=== PATIENT | male | born 1945 | race Caucasian/White ===

== ENCOUNTER 2018-01-26 11:49 | Emergency (ER) | payer MEDICARE ==
[~2018-01-26] VITALS: Ht 185.4 cm; Wt 77.1 kg
[~2018-01-26 11:49] MED LIST: ALBU90I INH; AZIT250 PO; BENAML10/5; Benazepril HCl10 MG; CIPR500 PO; LEVSOD100; LEVSOD75; METO50ER; NAPR500 PO; NAPR500ERA; OMEPRAZOLE DR 40 MG; PIOG15; SIMV10
[2018-01-26] MEDS ORDERED: AMLO10 PO (11:56)
== END 2018-01-26 12:52 | disposition home or self-care (01) ==
LOC: ER 11:49
DX: S61.011A Laceration without foreign body of right thumb without damage to nail, initial encounter (principal); I10 Essential (primary) hypertension; Z88.0 Allergy status to penicillin; Z79.899 Other long term (current) drug therapy; Z87.891 Personal history of nicotine dependence; W26.0XXA Contact with knife, initial encounter
CPT/HCPCS: 12001; 99283

== ENCOUNTER 2021-01-16 14:29 | Observation (INO) | payer MEDICARE ==
[~2021-01-16] VITALS: Ht 182.9 cm; Wt 73.6 kg
[~2021-01-16 14:29] MED LIST changes: +AMLO10 PO; -Benazepril HCl10 MG; +Benazepril HCl10 MG PO; -SIMV10; +SIMV10 PO
[2021-01-16 15:28] LABS: BASOPHILS ABSOLUTE AUTO 0.05 K/mm3 (0.00-0.23); BASOPHILS PERCENT AUTO 1 % (0-2); EOSINOPHILS ABSOLUTE AUTO 0.21 K/mm3 (0.00-0.68); EOSINOPHILS PERCENT AUTO 4 % (0-6); Hematocrit 46.3 % (37.0-53.0); IMMATURE GRAN ABSOLUTE AUTO 0.01 K/mm3 (0.00-0.10); IMMATURE GRAN PERCENT AUTO 0 % (0-1); LYMPHOCYTES ABSOLUTE AUTO 0.99 K/mm3 (0.84-5.20); LYMPHOCYTES PERCENT AUTO 17 % (21-46); MONOCYTES ABSOLUTE AUTO 0.52 K/mm3 (0.16-1.47); MONOCYTES PERCENT AUTO 9 % (4-13); Mean Corpuscular HGB 31.6 pg (26.0-34.0); Mean Corpuscular HGB Conc 34.6 g/dL (31.5-36.5); Mean Corpuscular Volume 91 fL (80-100); Mean Platelet Volume 9.7 fL (9.1-12.4); NEUTROPHILS ABSOLUTE AUTO 3.96 K/mm3 (1.96-9.15); NEUTROPHILS PERCENT AUTO 69 % (41-73); Platelet Count 257 K/mm3 (150-400); RDW Coefficient Variation 13.4 % (11.7-14.2); Red Blood Cell Count 5.07 M/mm3 (4.30-5.90); White Blood Cell Count 5.74 K/mm3 (4.00-11.30)
[2021-01-16 15:44] LABS: Alanine Aminotransfer (ALT/SGP 21 U/L (12-78); Albumin, Blood 3.6 g/dL (3.4-5.0); Albumin/Globulin Ratio 0.9 (0.8-1.8); Alk Phos 126 U/L (50-136); Anion Gap 4 mmol/L (6-16); Aspartate Aminotrans (AST/SGOT 15 U/L (12-37); Bilirubin, Total 0.7 mg/dL (0.1-1.0); Blood Urea Nitrogen 14 mg/dL (8-24); Bun/Creatinine Ratio 16.4 (12.0-20.0); CO2, Blood 28 mmol/L (21-32); Calcium, Blood 8.7 mg/dL (8.5-10.1); Chloride, Blood 108 mmol/L (98-108); Creatinine, Blood 0.86 mg/dL (0.60-1.20); Globulin, Blood 4.1 g/dL (2.2-4.0); Glomerular Filtration Rate >60 (60-); Glucose, Blood 137 mg/dL (70-99); Potassium, Blood 3.9 mmol/L (3.5-5.5); Sodium, Blood 140 mmol/L (136-145); Total Protein, Blood 7.7 g/dL (6.4-8.2); Troponin I <0.015 ng/mL (0.000-0.040)
[2021-01-16] MEDS ORDERED: EUTHYROX88 MC1 PO (16:09)
[2021-01-16] MEDS ORDERED: Aspirin EC81 MG PO (16:11)
[2021-01-16 17:26] LABS: Source, Urine Clean Catch
[2021-01-16 17:29] LABS: Appearance, Urine Clear (Clear); Bilirubin, Urine Neg (Neg); Blood, Urine Neg (Neg); Color, Urine Yellow (P-Yellow); Glucose Qualitative, Urine Neg (Neg); Ketones, Urine Neg (Neg); Leukocyte Esterase, Urine Neg (Neg); Nitrite, Urine Neg (Neg); Protein, Urine 1+ (Neg); Specific Gravity, Urine 1.025 (1.003-1.022); Urobilinogen, Urine NORM (Normal)
[2021-01-16] MEDS ORDERED: OMEP20ER PO (18:22)
[2021-01-16] MEDS ORDERED: ALBU90OI INH (18:23)
[2021-01-16] MEDS ORDERED: METO25ER PO (20:06)
--- NOTE | 2021-01-16 23:24 | NUR ---
RECEIVED CALL FROM TELEMETRY REPORTING PT. HAD 5.2 SEC PAUSE. PT. HAD BEEN UP TO BATHROOM W/ASSIST DURING THIS TIME. NOTIFIED CATHERINE MCDONALD, ORDER FOR BEDREST. PT. RESTING QUIETLY IN BED, NO APPARENT DISTRESS NOTED. WILL CONT TO MONITOR.
[2021-01-17 05:01] LABS: Hemoglobin 15.3 g/dL (13.5-17.5); Mean Corpuscular HGB 31.5 pg (26.0-34.0); Mean Corpuscular HGB Conc 34.8 g/dL (31.5-36.5); Mean Corpuscular Volume 91 fL (80-100); Mean Platelet Volume 9.8 fL (9.1-12.4); Platelet Count 212 K/mm3 (150-400); RDW Coefficient Variation 13.2 % (11.7-14.2); RDW Standard Deviation 43.6 fL (35.1-46.3); Red Blood Cell Count 4.85 M/mm3 (4.30-5.90); White Blood Cell Count 5.69 K/mm3 (4.00-11.30)
[2021-01-17 05:25] LABS: Anion Gap 7 mmol/L (6-16); Blood Urea Nitrogen 10 mg/dL (8-24); Bun/Creatinine Ratio 14.5 (12.0-20.0); CO2, Blood 26 mmol/L (21-32); Calcium, Blood 8.1 mg/dL (8.5-10.1); Chloride, Blood 104 mmol/L (98-108); Creatinine, Blood 0.69 mg/dL (0.60-1.20); Glomerular Filtration Rate >60 (60-); Glucose, Blood 122 mg/dL (70-99); Magnesium, Blood 2.1 mg/dL (1.6-2.4); Potassium, Blood 3.6 mmol/L (3.5-5.5); Sodium, Blood 137 mmol/L (136-145)
--- NOTE | 2021-01-17 05:52 | NUR ---
SHIFT SUMMARY- PT. NEW ADMIT FROM ED WITH VERTIGO. A&OX4, [place]. PT. VERY DIZZY WHEN STANDS AND AMBULATES. PLACED ON BEDREST WITH URIANL @BEDSIDE. NO COMPLAINTS OF PAIN OR DISCOMFORT T/O THE NIGHT. PT. RESTED QUIETLY IN BED, NO APPARENT DISTRESS NOTED. WILL CONT TO MONITOR.
[2021-01-17 11:09] LABS: Lactate Dehydrogenase (Ld),Bld 187 U/L (100-240); Prostate Specific Antigen 0.333 ng/mL (0.000-4.000)
[2021-01-17 11:11] LABS: Cancer Antigen 19-9 13.5 U/mL (2.0-37.0); Carcinoembryonic Antigen 121.4 ng/mL (0.0-3.0)
--- NOTE | 2021-01-17 18:26 | NUR ---
SHIFT SUMMARY PT AXO, PLEASANT AND COOPERATIVE WITH CARE THOUGH [facility]. PHYSICAL THERAPY ASSESSED PATIENT, SEE NOTE. EMESIS EPISODE DIRECTLY FOLLOWING PHYSICAL THERAPY EXERCISE. VSS. PT DENIES PAIN AND SOB. MEDICATED FOR NAUSEA PER EMAR. PATIENT, SPOUSE, SON AND DAUGHTER EDUCATED ABOUT VISITOR RESTRICTIONS THOUGH ALL PRESENT IN THE ROOM AT THIS TIME WITH DR. JOHNSON. NO ACUTE CHANGES THIS SHIFT
--- NOTE | 2021-01-18 03:46 | NUR ---
SHIFT SUMMARY A/OX4, PT REPORTS MILD NAUSEA WITH NO EMESIS THIS SHIFT. UNSTEADY GAIT NOTED, UP TO BATHROOM WITH FWW AND GB. AT BEDSIDE T/O NIGHT. VSS, NO ACUTE CHANGES AT THIS TIME. BED IN LOWEST POSITION WITH CALL LIGHT IN REACH. WILL CONTINUE TO MONITOR AND REPORT TO ONCOMING RN.
[2021-01-18 05:16] LABS: Hematocrit 48.2 % (37.0-53.0); Hemoglobin 16.7 g/dL (13.5-17.5); Mean Corpuscular HGB 31.7 pg (26.0-34.0); Mean Corpuscular HGB Conc 34.6 g/dL (31.5-36.5); Mean Corpuscular Volume 92 fL (80-100); Mean Platelet Volume 9.8 fL (9.1-12.4); Platelet Count 229 K/mm3 (150-400); RDW Coefficient Variation 13.5 % (11.7-14.2); RDW Standard Deviation 45.2 fL (35.1-46.3); Red Blood Cell Count 5.26 M/mm3 (4.30-5.90); White Blood Cell Count 4.16 K/mm3 (4.00-11.30)
[2021-01-18 05:37] LABS: Albumin, Blood 3.2 g/dL (3.4-5.0); Anion Gap 5 mmol/L (6-16); Blood Urea Nitrogen 14 mg/dL (8-24); Bun/Creatinine Ratio 16.8 (12.0-20.0); CO2, Blood 26 mmol/L (21-32); Calcium, Blood 8.8 mg/dL (8.5-10.1); Chloride, Blood 105 mmol/L (98-108); Creatinine, Blood 0.83 mg/dL (0.60-1.20); Glomerular Filtration Rate >60 (60-); Glucose, Blood 151 mg/dL (70-99); Potassium, Blood 4.4 mmol/L (3.5-5.5); Sodium, Blood 136 mmol/L (136-145)
--- NOTE | 2021-01-18 05:49 | NUR ---
PROVIDER CONSULT ATTEMPTED TO CALL IN RADIOLOGY ONCOLOGIST CONSULT, NO ANSWERING SERVICE SET UP FOR DR. SEE/DR. HAWKINS. WILL FORWARD INFORMATION TO DAX FERNANDEZ.
[2021-01-18] MEDS ORDERED: DEXA4 PO (12:52)
[2021-01-18] MEDS ORDERED: ONDA4ODT MM (12:53)
--- NOTE | 2021-01-18 15:09 | NUR ---
PATIENT DISCHARGE: PATIENT DISCHARGED TO HOME THIS SHIFT. MEDICATION RECONCILIATION COMPLETED; MED LIST FAXED TO [facility]. DISCHARGE EDUCATION COMPLETED WITH PATIENT AND FAMILY. PATIENT TRANSPORTED TO EXIT BY [facility] STAFF WITH WHEELCHAIR AT 1445. PATIENT DEPARTED [facility] VIA PRIVATE AUTO.
--- NOTE | 2021-01-18 16:28 | NUR ---
Met with pt today, along with and their daughter, who speaks primarily for the group. Bisi saw pt yesterday; pt states they do not have any needs from us at this time. Will remain available.
== END 2021-01-18 14:53 | disposition home or self-care (01) ==
LOC: ER 14:29 → MEDS 14:30 → ER 18:18 → MEDS 19:45 → ENPENDDIS 01-18 12:03 → MEDS 01-18 14:53
PROVIDERS: Internal Medicine Hematology & Oncology; Physician Assistant; ADMIT Internal Medicine
DX: H81.10 Benign paroxysmal vertigo, unspecified ear (principal); C79.31 Secondary malignant neoplasm of brain; C79.51 Secondary malignant neoplasm of bone; C78.00 Secondary malignant neoplasm of unspecified lung; C77.1 Secondary and unspecified malignant neoplasm of intrathoracic lymph nodes; C77.3 Secondary and unspecified malignant neoplasm of axilla and upper limb lymph nodes; C80.1 Malignant (primary) neoplasm, unspecified; R11.2 Nausea with vomiting, unspecified; M79.605 Pain in left leg; M79.604 Pain in right leg; I35.0 Nonrheumatic aortic (valve) stenosis; J44.9 Chronic obstructive pulmonary disease, unspecified; I10 Essential (primary) hypertension; E78.5 Hyperlipidemia, unspecified; K21.9 Gastro-esophageal reflux disease without esophagitis; H91.90 Unspecified hearing loss, unspecified ear; E03.9 Hypothyroidism, unspecified; R97.0 Elevated carcinoembryonic antigen [CEA]; I45.2 Bifascicular block; R59.1 Generalized enlarged lymph nodes; R91.8 Other nonspecific abnormal finding of lung field; E11.9 Type 2 diabetes mellitus without complications; Z88.0 Allergy status to penicillin; Z87.891 Personal history of nicotine dependence; Z86.73 Personal history of transient ischemic attack (TIA), and cerebral infarction without residual deficits
CPT/HCPCS: 36415; 70450; 71046; 71260; 74177; 80048; 80053; 80069; 82378; 83615; 83735; 83880; 84153; 84484; 85025; 85027; 86301; 93005; 93010; 94640; 94664; 94760; 96361; 96374; 96375; 96376; 97110; 97112; 97162; 99285-25; A9270; G0378; J2405; Q9967

== ENCOUNTER 2021-01-29 09:01 | Day surgery (SDC) | payer MEDICARE ==
[~2021-01-29 09:01] MED LIST changes: +ALBU90OI INH; +Aspirin EC81 MG PO; +DEXA4 PO; +EUTHYROX88 MC1 PO; +METO25ER PO; +OMEP20ER PO; +ONDA4ODT MM
== END 2021-01-29 23:51 | disposition home or self-care (01) ==
LOC: MOI US 09:01
DX: C77.3 Secondary and unspecified malignant neoplasm of axilla and upper limb lymph nodes (principal); C34.81 Malignant neoplasm of overlapping sites of right bronchus and lung; C79.31 Secondary malignant neoplasm of brain
CPT/HCPCS: 38505; 76942; 88305; 88341; 88342

== ENCOUNTER 2021-04-04 10:21 | Inpatient (IN) | payer MEDICARE ==
[~2021-04-04] VITALS: Ht 180.3 cm; Wt 68.0 kg
[2021-04-04 10:56] LABS: BASOPHILS ABSOLUTE AUTO 0.02 K/mm3 (0.00-0.23); BASOPHILS PERCENT AUTO 1 % (0-2); Hematocrit 29.6 % (37.0-53.0); Hemoglobin 10.3 g/dL (13.5-17.5); LYMPHOCYTES ABSOLUTE AUTO 0.27 K/mm3 (0.84-5.20); LYMPHOCYTES PERCENT AUTO 10 % (21-46); MONOCYTES ABSOLUTE AUTO 0.11 K/mm3 (0.16-1.47); MONOCYTES PERCENT AUTO 4 % (4-13); Mean Corpuscular HGB 34.7 pg (26.0-34.0); Mean Corpuscular HGB Conc 34.8 g/dL (31.5-36.5); Mean Corpuscular Volume 100 fL (80-100); Mean Platelet Volume 9.7 fL (9.1-12.4); Platelet Count 152 K/mm3 (150-400); RDW Coefficient Variation 20.3 % (11.7-14.2); RDW Standard Deviation 72.5 fL (35.1-46.3); Red Blood Cell Count 2.97 M/mm3 (4.30-5.90); White Blood Cell Count 2.78 K/mm3 (4.00-11.30)
[2021-04-04 11:05] LABS: EOSINOPHILS PERCENT AUTO 0 % (0-6); IMMATURE GRAN ABSOLUTE AUTO 1.15 K/mm3 (0.00-0.10); IMMATURE GRAN PERCENT AUTO 41 % (0-1); NEUTROPHILS ABSOLUTE AUTO 1.23 K/mm3 (1.96-9.15); NEUTROPHILS PERCENT AUTO 44 % (41-73)
[2021-04-04 11:14] LABS: Alanine Aminotransfer (ALT/SGP 74 U/L (12-78); Albumin, Blood 2.8 g/dL (3.4-5.0); Alk Phos 136 U/L (50-136); Anion Gap 15 mmol/L (6-16); Aspartate Aminotrans (AST/SGOT 40 U/L (12-37); Bilirubin, Total 1.6 mg/dL (0.1-1.0); Blood Urea Nitrogen 21 mg/dL (8-24); Bun/Creatinine Ratio 35.1 (12.0-20.0); CO2, Blood 21 mmol/L (21-32); Calcium, Blood 7.3 mg/dL (8.5-10.1); Chloride, Blood 95 mmol/L (98-108); Globulin, Blood 2.9 g/dL (2.2-4.0); Glomerular Filtration Rate >60 (60-); Glucose, Blood 178 mg/dL (70-99); Potassium, Blood 4.2 mmol/L (3.5-5.5); Sodium, Blood 131 mmol/L (136-145); Total Protein, Blood 5.7 g/dL (6.4-8.2)
[2021-04-04 11:53] LABS: SARS-Cov-2 (COVID-19) PCR, MMC NEGATIVE (NEGATIVE)
--- NOTE | 2021-04-04 15:20 | NUR ---
SBAR REPORT FROM FLAKITA PANG RN
[2021-04-04] MEDS ORDERED: DEXA2 PO (17:19)
[2021-04-04] MEDS ORDERED: Aspir 8181 MG PO (17:20)
[2021-04-04] MEDS ORDERED: Zocor10 MG PO (17:20)
--- NOTE | 2021-04-04 18:19 | NUR ---
Patient was not patiently waiting for me to help him stand family said "goodluck trying to get him to wait." I said BSC was the only choice for urinationing at that time. He was peeing on BSC on the floor, not being careful. Family was reluctant to let me help. Instead of letting me help. Vistior/ family was in room.
[2021-04-05 04:47] LABS: BASOPHILS ABSOLUTE AUTO 0.02 K/mm3 (0.00-0.23); BASOPHILS PERCENT AUTO 2 % (0-2); Hematocrit 24.6 % (37.0-53.0); Hemoglobin 8.1 g/dL (13.5-17.5); LYMPHOCYTES ABSOLUTE AUTO 0.13 K/mm3 (0.84-5.20); LYMPHOCYTES PERCENT AUTO 10 % (21-46); MONOCYTES ABSOLUTE AUTO 0.09 K/mm3 (0.16-1.47); MONOCYTES PERCENT AUTO 7 % (4-13); Mean Corpuscular HGB 34.2 pg (26.0-34.0); Mean Corpuscular HGB Conc 32.9 g/dL (31.5-36.5); Mean Corpuscular Volume 104 fL (80-100); Mean Platelet Volume 9.8 fL (9.1-12.4); Platelet Count 97 K/mm3 (150-400); RDW Coefficient Variation 20.9 % (11.7-14.2); RDW Standard Deviation 77.3 fL (35.1-46.3); Red Blood Cell Count 2.37 M/mm3 (4.30-5.90); White Blood Cell Count 1.36 K/mm3 (4.00-11.30)
[2021-04-05 04:50] LABS: EOSINOPHILS PERCENT AUTO 0 % (0-6); IMMATURE GRAN ABSOLUTE AUTO 0.01 K/mm3 (0.00-0.10); IMMATURE GRAN PERCENT AUTO 1 % (0-1); NEUTROPHILS ABSOLUTE AUTO 1.11 K/mm3 (1.96-9.15); NEUTROPHILS PERCENT AUTO 82 % (41-73)
--- NOTE | 2021-04-05 05:02 | NUR ---
SCHOOL BUS MONITOR SUMMARY PT AAOX3 AND PLEASANT. CALLS APPROPRIATELY FOR ASSIST. UP FREQUENTLY THROUGHOUT THE NIGHT TO THE BEDSIDE TO USE URINAL. LACTIC FROM 9 TO 6.2 AT START OF SHIFT. RECIEVED ORDER FROM DR JONES FOR ADDITIONAL LITER OF NS TO RUN AT 125 ML/HR AND TO RECHECK LACTIC WITH AM LABS WHICH ARE STILL PENDING. SATTING 99% ON 5L O2, TITRATED DOWN TO 3L. VSS, WILL CONTINUE TO MONITOR.
[2021-04-05 05:05] LABS: Alanine Aminotransfer (ALT/SGP 62 U/L (12-78); Albumin, Blood 2.4 g/dL (3.4-5.0); Albumin/Globulin Ratio 0.8 (0.8-1.8); Alk Phos 106 U/L (50-136); Anion Gap 7 mmol/L (6-16); Aspartate Aminotrans (AST/SGOT 19 U/L (12-37); Bilirubin, Total 1.1 mg/dL (0.1-1.0); Blood Urea Nitrogen 11 mg/dL (8-24); Bun/Creatinine Ratio 23.5 (12.0-20.0); CO2, Blood 24 mmol/L (21-32); Calcium, Blood 7.3 mg/dL (8.5-10.1); Chloride, Blood 106 mmol/L (98-108); Creatinine, Blood 0.47 mg/dL (0.60-1.20); Globulin, Blood 2.9 g/dL (2.2-4.0); Glomerular Filtration Rate >60 (60-); Glucose, Blood 133 mg/dL (70-99); Magnesium, Blood 2.1 mg/dL (1.6-2.4); Potassium, Blood 4.2 mmol/L (3.5-5.5); Sodium, Blood 137 mmol/L (136-145); Total Protein, Blood 5.3 g/dL (6.4-8.2)
--- NOTE | 2021-04-05 17:42 | NUR ---
SHIFT SUMMARY PATIENT ALERT AND ORIENTATED 3-4X. PLEASANT AND COOPERATIVE WITH CARE. PATIENT USES URINAL WITH ONE PERSON ASSIST. PATIENT HAS BEEN ON 3L OF OXYGEN THROUGHOUT SHIFT. NO COMPLAINTS OF NAUSEA, VOMITTING, OR PAIN DURING SHIFT. BED ALARM SET AND IN LOWEST POSITION. CALL LIGHT IN REACH. VITAL SIGNS REVIEWED. WILL CONTINUE TO MONITOR.
--- NOTE | 2021-04-06 04:03 | NUR ---
SHIFT SUMMARY A/OX3, USES CALL LIGHT APPROPRIATELY. SLEPT T/O THE NIGHT. CURRENTLY ON 3L VIA NC WITH SATS GREATER THAN 92. VSS, NO ACUTE CHANGES AT THIS TIME. BED IN LOWEST POSITION WITH CALL LIGHT IN REACH. WILL CONTINUE TO MONITOR AND REPORT TO ONCOMING RN.
--- NOTE | 2021-04-06 04:25 | NUR ---
PHYSICIAN CONTACT TACHYCARDIC IN THE 140-150S THIS AM. [employer] MANAGER ARCHITECT PROVIDER NOTIFIED, NEW ORDER FOR TELE AND 25MG PO METOPROL TARTRATE X1. WILL CONTINUE TO MONITOR
[2021-04-06 07:18] LABS: Hematocrit 22.8 % (37.0-53.0); Hemoglobin 7.9 g/dL (13.5-17.5); Mean Corpuscular HGB 35.1 pg (26.0-34.0); Mean Corpuscular HGB Conc 34.6 g/dL (31.5-36.5); Mean Corpuscular Volume 101 fL (80-100); Mean Platelet Volume 10.2 fL (9.1-12.4); Platelet Count 96 K/mm3 (150-400); RDW Coefficient Variation 20.4 % (11.7-14.2); RDW Standard Deviation 73.9 fL (35.1-46.3); Red Blood Cell Count 2.25 M/mm3 (4.30-5.90); White Blood Cell Count 1.43 K/mm3 (4.00-11.30)
[2021-04-06 07:31] LABS: Alanine Aminotransfer (ALT/SGP 71 U/L (12-78); Albumin, Blood 2.5 g/dL (3.4-5.0); Albumin/Globulin Ratio 0.8 (0.8-1.8); Alk Phos 99 U/L (50-136); Anion Gap 9 mmol/L (6-16); Aspartate Aminotrans (AST/SGOT 23 U/L (12-37); Bilirubin, Total 1.4 mg/dL (0.1-1.0); Blood Urea Nitrogen 16 mg/dL (8-24); Bun/Creatinine Ratio 29.7 (12.0-20.0); CO2, Blood 24 mmol/L (21-32); Calcium, Blood 7.9 mg/dL (8.5-10.1); Chloride, Blood 101 mmol/L (98-108); Creatinine, Blood 0.54 mg/dL (0.60-1.20); Globulin, Blood 3.2 g/dL (2.2-4.0); Glomerular Filtration Rate >60 (60-); Glucose, Blood 162 mg/dL (70-99); Potassium, Blood 4.2 mmol/L (3.5-5.5); Sodium, Blood 134 mmol/L (136-145); Total Protein, Blood 5.7 g/dL (6.4-8.2); Vancomycin, Trough 8.8 ug/mL (5.0-10.0)
--- NOTE | 2021-04-06 13:32 | NUR ---
TRANSFER NOTE PATIENTS HEART RATE AT 0430 WAS IN 140S AND STAYED IN THAT RANGE UNTIL SHIFT CHANGE. CALLED DR RADFORD TO NOTIFY, MEDICATION PRESCRIBED AND GIVEN. CALLED DR RADFORD AGAIN AFTER WAITING FOR MEDICATION TO TAKE EFFECT. HEART RATE STILL IN 140S. DR RADFORD PRESCRIBED DIGOXIN TO NO EFFECT. PATIENT TRANSFERRED TO PCU. REPORT GIVEN TO MULE RIDER.
--- NOTE | 2021-04-06 18:07 | NUR ---
SHIFT SUMMARY PT TRANSFERED TO PCU AT APPROX 1330, HR 150'S BP 88/54; NOTIFIED DR RADFORD, NEW ORDERS FOR NS 500cc BOLUS, HOLD THE CARDIZEM PUSH AND START CARDIZEM GTT AT 5ML/HR. TITRATED TO 20ML/HR WITH NO CHANGE TO HR, NOTIFIED DR RADFORD, NEW ORDERS FOR AMIO BOLUS AND GTT. PT ORIENTED TO ROOM AND CALL LIGHT. A&O; CALM AND COOPERATIVE WITH CARE. WALES. PT DENIES PAIN, CHEST PAIN, SOB, NASUEA AND DIZZINESS. SPO2 >92%, ON 3L O2 VIA NC AT 100% WHEN TRANSFERED, TITRATED TO 1L O2 VIA NC SP02 91-96%. PT RECEIVING IV ANTIBIOTICS. BP TRENDED UP AFTER BOLUS, HR 130'S TO 140'S, OTHER VSS. NO OTHER ACUTE CHANGES NOTED DURING SHIFT. WILL CONTINUE TO MONITOR UNTIL REPORT GIVEN TO ONCOMING RN.
[2021-04-07 04:20] LABS: Hematocrit 21.6 % (37.0-53.0); Hemoglobin 7.5 g/dL (13.5-17.5); Mean Corpuscular HGB 35.2 pg (26.0-34.0); Mean Corpuscular HGB Conc 34.7 g/dL (31.5-36.5); Mean Corpuscular Volume 101 fL (80-100); Mean Platelet Volume 10.6 fL (9.1-12.4); Platelet Count 80 K/mm3 (150-400); RDW Coefficient Variation 19.9 % (11.7-14.2); RDW Standard Deviation 72.9 fL (35.1-46.3); Red Blood Cell Count 2.13 M/mm3 (4.30-5.90)
--- NOTE | 2021-04-07 04:32 | NUR ---
SUMMARY PT REMAINS IN A-FLUTTER IN 130'S. PT DENIES CX PAIN OR SOB. PT HAS BEEN RESTING WELL T/O SHIFT. PT IS VOIDING AND TAKING IN PO FLUIDS. PT CURRENTLY SLEEPING IN NO DISTRESS. CALL LIGHT IN REACH.
[2021-04-07 04:52] LABS: Alanine Aminotransfer (ALT/SGP 85 U/L (12-78); Albumin, Blood 2.4 g/dL (3.4-5.0); Albumin/Globulin Ratio 0.8 (0.8-1.8); Alk Phos 87 U/L (50-136); Anion Gap 8 mmol/L (6-16); Aspartate Aminotrans (AST/SGOT 30 U/L (12-37); Bilirubin, Total 1.3 mg/dL (0.1-1.0); Blood Urea Nitrogen 20 mg/dL (8-24); Bun/Creatinine Ratio 38.3 (12.0-20.0); CO2, Blood 23 mmol/L (21-32); Calcium, Blood 7.2 mg/dL (8.5-10.1); Chloride, Blood 101 mmol/L (98-108); Creatinine, Blood 0.52 mg/dL (0.60-1.20); Globulin, Blood 3.1 g/dL (2.2-4.0); Glomerular Filtration Rate >60 (60-); Glucose, Blood 181 mg/dL (70-99); Magnesium, Blood 2.1 mg/dL (1.6-2.4); Potassium, Blood 4.1 mmol/L (3.5-5.5); Sodium, Blood 132 mmol/L (136-145); Total Protein, Blood 5.5 g/dL (6.4-8.2)
--- NOTE | 2021-04-07 18:02 | NUR ---
PT HAS BEEN RESTING WELL IN BED T/O THE DAY DENIES SOB AND CP. PT DOES REPORT SOME NAUSEA THIS AM STS THAT BEGAN AFTER LUNCH WHEN HE WAS TOLLED FOR A BED BATH. AMIODERONE CONTINUES INFUSING AT 16.7ML/HR, PT HAS ALSO RECIEVED LOPRESSOR AND DIGOXIN FOR RATE CONTROL, BUT RATE OR RHYTHM HAS REMAINED UNCHAGED IN THE MID 140s. OTHERWISE NO ACUTE CHANGES THIS SHIFT
--- NOTE | 2021-04-07 22:36 | NUR ---
DR. MONROE UPDATED ON PATIENT HR, WHICH IS SUSTAINING 140'S 30 MIN POST IV METOPROL PUSH. WENT INTO 120'S FOR 10 MIN AT THE MOST THEN BACK UP. REMAINS ON AMIO DRIP AT 16.7ML/HR. ASYMPTOMATIC RESTING IN BED. CLARIFIED PARAMETERS OF METOPROL PUSH ORDER FOR HR GREATER THAN 120 BUT NO OTHER NEW ORDERS AT THIS TIME. WILL CONTINUE TO MONITOR.
[2021-04-07 22:50] LABS: Hematocrit 20.2 % (37.0-53.0)
--- NOTE | 2021-04-08 06:13 | NUR ---
SHIFT SUMMARY PATIENT A&OX4, [place], AND FORGETFUL AT TIMES. GEN WEAKNESS NOTED. ON 2L NC SATING HIGH 90'S. DRY COUGH. DESPITE REMAINING ON AMIO DRIP, PATIENT HR 120-140'S ALL NIGHT. 2 IV PUSH METOPROLO DOSES GIVEN WITH NO CHANGE. MD AWARE AND NO NEW ORDERS. ASYMPTOMATIC RESTING IN BED THROUGHOUT. VSS. NPO IN CASE OF POSSIBLE CARDIAC INTERVENTION TODAY. VOIDING WELL PER URINAL. IV ABX AND AMIO DRIP RUNNING PER ORDER. TURNS SELF WELL IN BED. NO ACUTE CONCERNS AT THIS TIME. WILL CONTINUE TO MONITOR UNTIL REPORT GIVEN TO DAX FERNANDEZ.
[2021-04-08 07:48] LABS: Vancomycin, Trough 16.3 ug/mL (5.0-10.0)
[2021-04-08 08:32] LABS: Hematocrit 22.4 % (37.0-53.0); Hemoglobin 7.6 g/dL (13.5-17.5); Mean Corpuscular HGB 34.9 pg (26.0-34.0); Mean Corpuscular HGB Conc 33.9 g/dL (31.5-36.5); Mean Corpuscular Volume 103 fL (80-100); Mean Platelet Volume 11.7 fL (9.1-12.4); NRBC ABSOLUTE 0.03 K/mm3 (0.00-0.02); NRBC Auto 0.9 /100 WBC (0.0-0.2); Platelet Count 69 K/mm3 (150-400); RDW Coefficient Variation 19.1 % (11.7-14.2); RDW Standard Deviation 71.2 fL (35.1-46.3); Red Blood Cell Count 2.18 M/mm3 (4.30-5.90); White Blood Cell Count 3.22 K/mm3 (4.00-11.30)
[2021-04-08 08:38] LABS: Anion Gap 10 mmol/L (6-16); Blood Urea Nitrogen 20 mg/dL (8-24); CO2, Blood 23 mmol/L (21-32); Calcium, Blood 7.8 mg/dL (8.5-10.1); Chloride, Blood 100 mmol/L (98-108); Creatinine, Blood 0.57 mg/dL (0.60-1.20); Glomerular Filtration Rate >60 (60-); Glucose, Blood 157 mg/dL (70-99); Sodium, Blood 133 mmol/L (136-145)
--- NOTE | 2021-04-08 11:40 | NUR ---
AMIODARONE INFILTRATION NOTED TO LFA IV SITE. SEE PHOTO DOCUMENTATION IN CHART. PT DENIES PAIN AT SITE. PHARMACY CONSULTED BY THIS RN, ADVISED TO PLACE AN ICEPACK TO AREA AND CONTACT PROVIDER. DR RONDON IS IN PROCEDURE AT THIS TIME.
--- NOTE | 2021-04-09 04:34 | NUR ---
SHIFT SUMMARY PT RESTED WELL T/O NIGHT. AAOX4. CARDIOVERTED YESTARDAY. TELEMTRY IN PLACE, NSR 80s T/O NIGHT. PT MOVES SELF WELL IN BED, CONTINUE TO ENCOURAGE TOLERATED. REDNESS TO LEFT FA WITH NO CHANGES FROM PREVIOUS SHIFT. IVF PER ORDERS. PT REFUSING SCDs. NO ACUTE CHANGES OVER NIGHT. PT CURRENTLY RESTING IN BED WITH CALL LIGHT IN REACH + BED ALARM ON FOR SAFETY.
[2021-04-09] MEDS ORDERED: METO50 PO (15:23)
[2021-04-09] MEDS ORDERED: LEVFLO500 PO (15:24)
[2021-04-09] MEDS ORDERED: AMIODARONE HCL200 M1 PO (15:24)
--- NOTE | 2021-04-09 16:22 | NUR ---
DISCHARGE SUMMARY PATIENT ALERT AND MOSTLY ORIENTED. WEAK AND LIGHTHEADED WITH MOVEMENT/EXERTION. HR AND BLOOD PRESSURE CONTROLLED WITH MEDS. TOLERATING CARDIAC DIET AND FLUIDS. VOIDING. MEDICALLY STABLE PER HOSPITALIST. DISCHARGE ORDERS OBTAINED. DISCHARGE EDUCATION GIVEN OVER PHONE TO PATIENT'S . DISCUSSED NEW MEDS AND FOLLOW UP APPTS. PT LEFT UNIT AT 1610 VIA WHEELCHAIR FOR HOME WITH HOME HEALTH.
== END 2021-04-09 16:12 | disposition home health service (06) | DRG 871 ==
LOC: ER 10:21 → MEDS 12:46 → SURS 12:46 → MEDS 15:32 → SURS 04-06 13:27
PROVIDERS: Emergency Medicine; Family Medicine; ADMIT Internal Medicine
PROC: 5A2204Z Restoration of Cardiac Rhythm, Single (ICD-10-PCS; principal; 2021-04-08)
DX: A41.9 Sepsis, unspecified organism (principal); J18.9 Pneumonia, unspecified organism; J96.21 Acute and chronic respiratory failure with hypoxia; C34.90 Malignant neoplasm of unspecified part of unspecified bronchus or lung; C79.31 Secondary malignant neoplasm of brain; J44.0 Chronic obstructive pulmonary disease with (acute) lower respiratory infection; C79.51 Secondary malignant neoplasm of bone; D61.818 Other pancytopenia; Z20.822 Contact with and (suspected) exposure to COVID-19; I10 Essential (primary) hypertension; E78.5 Hyperlipidemia, unspecified; D69.59 Other secondary thrombocytopenia; E03.9 Hypothyroidism, unspecified; I48.0 Paroxysmal atrial fibrillation; K21.9 Gastro-esophageal reflux disease without esophagitis; I35.0 Nonrheumatic aortic (valve) stenosis; D70.1 Agranulocytosis secondary to cancer chemotherapy; R65.20 Severe sepsis without septic shock; I45.10 Unspecified right bundle-branch block; T45.1X5A Adverse effect of antineoplastic and immunosuppressive drugs, initial encounter; Z86.010 Personal history of colon polyps; Z88.0 Allergy status to penicillin; Z98.890 Other specified postprocedural states; Z90.49 Acquired absence of other specified parts of digestive tract; Z86.73 Personal history of transient ischemic attack (TIA), and cerebral infarction without residual deficits; Z79.899 Other long term (current) drug therapy; Z79.82 Long term (current) use of aspirin; Z87.891 Personal history of nicotine dependence
CPT/HCPCS: 36415; 71045; 80048; 80053; 80202; 82947; 83605; 83735; 84443; 85014; 85018; 85025; 85027; 87040; 93005; 93010; 93306; 93312; 93325; 94644; 94762; 96365; 96375; 97110; 97162; 97530; 99285-25; A9270; J0282; J0456; J0692; J0696; J1100; J1160; J1650; J2250; J2310; J2405; J3010; J3370; J7030; J7040; J7050; J7060; U0004

== ENCOUNTER 2021-04-14 13:21 | Emergency (ER) | payer MEDICARE ==
[~2021-04-14] VITALS: Ht 185.4 cm; Wt 77.1 kg
[~2021-04-14 13:21] MED LIST changes: +AMIODARONE HCL200 M1 PO; +Aspir 8181 MG PO; +DEXA2 PO; +LEVFLO500 PO; +METO50 PO; +Zocor10 MG PO
[2021-04-14 14:17] LABS: Hematocrit 25.1 % (37.0-53.0); Hemoglobin 8.1 g/dL (13.5-17.5); Mean Corpuscular HGB 35.7 pg (26.0-34.0); Mean Corpuscular HGB Conc 32.3 g/dL (31.5-36.5); Mean Platelet Volume 10.8 fL (9.1-12.4); NRBC ABSOLUTE 0.99 K/mm3 (0.00-0.02); NRBC Auto 5.6 /100 WBC (0.0-0.2); Platelet Count 115 K/mm3 (150-400); RDW Coefficient Variation 22.3 % (11.7-14.2); RDW Standard Deviation 81.9 fL (35.1-46.3); Red Blood Cell Count 2.27 M/mm3 (4.30-5.90); White Blood Cell Count 17.78 K/mm3 (4.00-11.30)
[2021-04-14 14:27] LABS: Mean Corpuscular Volume 111 fL (80-100)
[2021-04-14 14:41] LABS: Alanine Aminotransfer (ALT/SGP 69 U/L (12-78); Albumin, Blood 3.2 g/dL (3.4-5.0); Albumin/Globulin Ratio 1.1 (0.8-1.8); Alk Phos 112 U/L (50-136); Anion Gap 12 mmol/L (6-16); Aspartate Aminotrans (AST/SGOT 30 U/L (12-37); Bilirubin, Total 0.7 mg/dL (0.1-1.0); Blood Urea Nitrogen 21 mg/dL (8-24); Bun/Creatinine Ratio 35.6 (12.0-20.0); CO2, Blood 21 mmol/L (21-32); Calcium, Blood 8.5 mg/dL (8.5-10.1); Chloride, Blood 101 mmol/L (98-108); Creatinine, Blood 0.59 mg/dL (0.60-1.20); Globulin, Blood 2.8 g/dL (2.2-4.0); Glomerular Filtration Rate >60 (60-); Glucose, Blood 110 mg/dL (70-99); Potassium, Blood 3.6 mmol/L (3.5-5.5); Sodium, Blood 134 mmol/L (136-145)
[2021-04-14 15:15] LABS: Source, Urine Clean Catch
[2021-04-14 15:22] LABS: Appearance, Urine Clear (Clear); Bilirubin, Urine Neg (Neg); Blood, Urine 5+ (Neg); Color, Urine Yellow (P-Yellow); Glucose Qualitative, Urine Neg (Neg); Ketones, Urine Neg (Neg); Leukocyte Esterase, Urine 1+ (Neg); Nitrite, Urine Neg (Neg); Protein, Urine 3+ (Neg); Specific Gravity, Urine 1.025 (1.003-1.022); Urobilinogen, Urine NORM (Normal)
[2021-04-14 15:34] LABS: Bacteria Mod /hpf; Red Blood Cells, Urine 25-50 /hpf (0-2); Squamous Epithelial Cells Few /hpf (Few); White Blood Cells, Urine 0-2 /hpf (0-5)
[2021-04-14 15:36] LABS: BAND PERCENT MAN 5 % (0-8); BASOPHILS PERCENT MAN 0 % (0-2); EOSINOPHILS ABSOLUTE MAN 0.71 K/mm3 (0.00-0.68); EOSINOPHILS PERCENT MAN 4 % (0-6); LYMPHOCYTES % ATYPICAL MANUAL 2 % (0-0); LYMPHOCYTES ABSOLUTE MAN 3.02 K/mm3 (0.84-5.20); LYMPHOCYTES PERCENT MAN 15 % (21-46); MONOCYTES ABSOLUTE MAN 0.17 K/mm3 (0.16-1.47); MONOCYTES PERCENT MAN 1 % (4-13); MYELOCYTE ABSOLUTE MAN 0.35 K/mm3 (0.00-0.00); MYELOCYTE PERCENT MAN 2 % (0-0); NEUTROPHILS ABSOLUTE MAN 13.33 K/mm3 (1.96-9.15); PROMYELOCYTE ABSOLUTE MAN 0.17 K/mm3 (0.00-0.00); PROMYELOCYTE PERCENT MAN 1 % (0-0); SEG NEUTROPHILS PERCENT MAN 70 % (41-73); TOTAL CELLS COUNTED 100
[2021-04-15] MEDS ORDERED: BENADRYL25 MG PO (15:16)
[2021-04-15] MEDS ORDERED: DOXYLAMINE-PYR1 EAC1 PO (15:17)
== END 2021-04-14 16:19 | disposition home or self-care (01) ==
LOC: ER 13:21
PROVIDERS: Physician Assistant
DX: R31.9 Hematuria, unspecified (principal); C34.90 Malignant neoplasm of unspecified part of unspecified bronchus or lung; C79.31 Secondary malignant neoplasm of brain; I10 Essential (primary) hypertension; Z88.0 Allergy status to penicillin; Z79.899 Other long term (current) drug therapy; Z79.82 Long term (current) use of aspirin; Z87.891 Personal history of nicotine dependence
CPT/HCPCS: 80053; 81001; 85025; 87086; 99283

== ENCOUNTER 2021-04-15 09:31 | Day surgery (SDC) | payer MEDICARE ==
[2021-04-15] MEDS ORDERED: BENADRYL25 MG PO (15:16)
[2021-04-15] MEDS ORDERED: DOXYLAMINE-PYR1 EAC1 PO (15:17)
== END 2021-04-15 16:27 | disposition home or self-care (01) ==
LOC: ATC 09:31
DX: C34.91 Malignant neoplasm of unspecified part of right bronchus or lung (principal); C34.92 Malignant neoplasm of unspecified part of left bronchus or lung; C79.31 Secondary malignant neoplasm of brain; C79.51 Secondary malignant neoplasm of bone; E11.9 Type 2 diabetes mellitus without complications; J44.9 Chronic obstructive pulmonary disease, unspecified; I10 Essential (primary) hypertension; Z87.891 Personal history of nicotine dependence; Z88.0 Allergy status to penicillin; Z88.8 Allergy status to other drugs, medicaments and biological substances
CPT/HCPCS: 36430; 86850; 86900; 86901; 86923; J7050; P9016

== ENCOUNTER 2021-05-19 16:00 | Inpatient (IN) | payer MEDICARE ==
[~2021-05-19] VITALS: Ht 188 cm; Wt 71.4 kg
[~2021-05-19 16:00] MED LIST changes: +BENADRYL25 MG PO; +DOXYLAMINE-PYR1 EAC1 PO
[2021-05-19 16:55] LABS: Hematocrit 24.9 % (37.0-53.0); Hemoglobin 8.7 g/dL (13.5-17.5); Mean Corpuscular HGB 35.7 pg (26.0-34.0); Mean Corpuscular HGB Conc 34.9 g/dL (31.5-36.5); Mean Platelet Volume 10.3 fL (9.1-12.4); RDW Standard Deviation 56.7 fL (35.1-46.3); Red Blood Cell Count 2.44 M/mm3 (4.30-5.90)
[2021-05-19 16:59] LABS: Mean Corpuscular Volume 102 fL (80-100)
[2021-05-19 17:00] LABS: BASOPHILS PERCENT AUTO 0 % (0-2); EOSINOPHILS PERCENT AUTO 0 % (0-6); IMMATURE GRAN PERCENT AUTO 0 % (0-1); LYMPHOCYTES PERCENT AUTO 75 % (21-46); MONOCYTES ABSOLUTE AUTO 0.04 K/mm3 (0.16-1.47); MONOCYTES PERCENT AUTO 10 % (4-13); NEUTROPHILS ABSOLUTE AUTO 0.06 K/mm3 (1.96-9.15); NEUTROPHILS PERCENT AUTO 15 % (41-73); Platelet Count 36 K/mm3 (150-400)
[2021-05-19 17:20] LABS: Alanine Aminotransfer (ALT/SGP 53 U/L (12-78); Albumin, Blood 3.1 g/dL (3.4-5.0); Albumin/Globulin Ratio 0.9 (0.8-1.8); Alk Phos 91 U/L (50-136); Anion Gap 11 mmol/L (6-16); Aspartate Aminotrans (AST/SGOT 24 U/L (12-37); Bilirubin, Total 1.2 mg/dL (0.1-1.0); Blood Urea Nitrogen 18 mg/dL (8-24); Bun/Creatinine Ratio 21.6 (12.0-20.0); CO2, Blood 20 mmol/L (21-32); Chloride, Blood 102 mmol/L (98-108); Creatinine, Blood 0.84 mg/dL (0.60-1.20); Globulin, Blood 3.6 g/dL (2.2-4.0); Glomerular Filtration Rate >60 (60-); Glucose, Blood 131 mg/dL (70-99); Potassium, Blood 3.5 mmol/L (3.5-5.5); Sodium, Blood 133 mmol/L (136-145); Total Protein, Blood 6.7 g/dL (6.4-8.2)
[2021-05-19 18:16] LABS: International Normalized Ratio 0.98; Prothrombin Time Results 10.3 Sec (9.7-11.5)
[2021-05-19 19:07] LABS: Phosphorus, Blood 2.6 mg/dL (2.5-4.9); Uric Acid, Blood 5.1 mg/dL (3.5-7.2)
[2021-05-19 20:45] LABS: Source, Urine Clean Catch
[2021-05-19 20:48] LABS: Bilirubin, Urine Neg (Neg); Blood, Urine 1+ (Neg); Glucose Qualitative, Urine Neg (Neg); Ketones, Urine 1+ (Neg); Leukocyte Esterase, Urine 1+ (Neg); Nitrite, Urine Neg (Neg); Protein, Urine 3+ (Neg); Specific Gravity, Urine 1.025 (1.003-1.022); Urobilinogen, Urine NORM (Normal)
[2021-05-19 21:15] LABS: Appearance, Urine Clear (Clear); Color, Urine Yellow (P-Yellow)
[2021-05-19 21:20] LABS: Bacteria Mod /hpf; Hyaline Casts 0-2 /lpf (0-2); Red Blood Cells, Urine 0-2 /hpf (0-2); Squamous Epithelial Cells Few /hpf (Few)
[2021-05-19 22:56] LABS: SARS-Cov-2 (COVID-19) PCR, MMC NEGATIVE (NEGATIVE)
[2021-05-20 01:34] LABS: C DIFFICILE DNA NEGATIVE (Negative)
[2021-05-20 04:38] LABS: Hematocrit 20.8 % (37.0-53.0); Hemoglobin 7.2 g/dL (13.5-17.5); Mean Corpuscular HGB 35.8 pg (26.0-34.0); Mean Corpuscular HGB Conc 34.6 g/dL (31.5-36.5); Mean Corpuscular Volume 104 fL (80-100); Mean Platelet Volume 10.5 fL (9.1-12.4); RDW Coefficient Variation 15.1 % (11.7-14.2); RDW Standard Deviation 57.1 fL (35.1-46.3); Red Blood Cell Count 2.01 M/mm3 (4.30-5.90)
[2021-05-20 04:39] LABS: BASOPHILS PERCENT AUTO 0 % (0-2); EOSINOPHILS PERCENT AUTO 0 % (0-6); IMMATURE GRAN PERCENT AUTO 0 % (0-1); LYMPHOCYTES ABSOLUTE AUTO 0.11 K/mm3 (0.84-5.20); LYMPHOCYTES PERCENT AUTO 61 % (21-46); MONOCYTES ABSOLUTE AUTO 0.02 K/mm3 (0.16-1.47); MONOCYTES PERCENT AUTO 11 % (4-13); NEUTROPHILS ABSOLUTE AUTO 0.05 K/mm3 (1.96-9.15); NEUTROPHILS PERCENT AUTO 28 % (41-73)
[2021-05-20 04:40] LABS: Platelet Count 20 K/mm3 (150-400)
[2021-05-20 04:41] LABS: White Blood Cell Count 0.18 K/mm3 (4.00-11.30)
[2021-05-20 04:52] LABS: Anion Gap 8 mmol/L (6-16); Blood Urea Nitrogen 17 mg/dL (8-24); Bun/Creatinine Ratio 26.3 (12.0-20.0); CO2, Blood 23 mmol/L (21-32); Chloride, Blood 108 mmol/L (98-108); Creatinine, Blood 0.65 mg/dL (0.60-1.20); Glomerular Filtration Rate >60 (60-); Glucose, Blood 142 mg/dL (70-99); Potassium, Blood 3.1 mmol/L (3.5-5.5); Sodium, Blood 139 mmol/L (136-145)
--- NOTE | 2021-05-20 05:35 | NUR ---
ASSUMED CARE OF THE PATIENT AT 2342. 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 PATIENT STATES HE USES TEXT MESSAGING WITH SPOUSE AT HOME. R PUPIL SLUGGISH, L PUPIL BRISK. DIMINISHED T/O, MAINTAINING ABOVE 90% ON RA. NSR AT 88 PER TELE. FAINT +1 PULSES BILATERAL IN PEDALS AND RADIAL. NEGATIVE FOR C.DIFF, MILD ABDOMINAL DISTENTION WITH HYPERACTIVE BOWEL SOUNDS. PRESSURE WOUND ON THE TOP OF THE BUTTOCK CRACK, PICTURES IN CHART. COVERED WITH BARRIER CREAM. SKIN IS COOL, PALE AND VERY DRY. RANDOM BRUISING T/O ALL LIMBS. PATIENTS PLT'S HAVE GONE DOWN FROM 36 TO 20, WITH WBC IMPROVING BUT STILL CRITICAL FROM 0.40 TO 0.18. HEM/ONC CONSULT CALLED IN. PG IN RIGHT UPPER ARM. LACTATE WENT FROM 5.0 TO 1.8. HGB LOW AT 7.2. NO NEW ORDERS GIVEN FOR LAB VALUES. WILL REPORT TO ONCMAMIE VERDUZCO RN.
--- NOTE | 2021-05-20 13:54 | NUR ---
TRANSFER MEDICAL PT A&O X4. [employer] [employer] [place] REQUIRING STAFF TO WRITE ON WHITEBOARD FOR COMMUNICATION. PT VSS. PT LUNG SOUNDS CLEAR, DIM IN BASES. SPO2 > 92% ON RA. MONITOR SHOWING SR, HR 80's PRIOR TO TELEMETRY BEING DC'd BY MD FOR MEDICAL NO TELE STATUS. LR GTT INFUSING PER ORDERS. IV KCL GIVEN PER ORDERS THIS AM. PT USING URINAL AT BEDSIDE. REPORT GIVEN TO ACCEPTING MEDICAL FLOOR RN. PT TO BE TRANSFERRED TO 360 BY BED W/ BELONGINGS.
--- NOTE | 2021-05-20 17:09 | NUR ---
PT ARRIVED TO FLOOR FROM PCU AT 1400. PT AOX3 AND COOPERATIVE OF CARE. PT IS WEAK AND RESTING IN BED. PT NEEDS TURNED Q2 HRS. PT HAS CALL LIGHT WITHIN REACH. NO DISTRESS NOTED AT THIS TIME WILL CONTINUE WITH NEUTROPENIC PRECAUTIONS.WILL CONTINUE TO MONITOR.
[2021-05-21 05:06] LABS: Hematocrit 19.4 % (37.0-53.0); Hemoglobin 6.7 g/dL (13.5-17.5); Mean Corpuscular HGB 35.6 pg (26.0-34.0); Mean Corpuscular HGB Conc 34.5 g/dL (31.5-36.5); Mean Corpuscular Volume 103 fL (80-100); RDW Coefficient Variation 15.3 % (11.7-14.2); Red Blood Cell Count 1.88 M/mm3 (4.30-5.90)
[2021-05-21 05:13] LABS: Platelet Count 12 K/mm3 (150-400); White Blood Cell Count 0.42 K/mm3 (4.00-11.30)
[2021-05-21 05:24] LABS: Anion Gap 7 mmol/L (6-16); Blood Urea Nitrogen 10 mg/dL (8-24); Bun/Creatinine Ratio 13.6 (12.0-20.0); CO2, Blood 24 mmol/L (21-32); Calcium, Blood 7.7 mg/dL (8.5-10.1); Chloride, Blood 106 mmol/L (98-108); Creatinine, Blood 0.74 mg/dL (0.60-1.20); Glomerular Filtration Rate >60 (60-); Glucose, Blood 113 mg/dL (70-99); Potassium, Blood 3.2 mmol/L (3.5-5.5); Sodium, Blood 137 mmol/L (136-145)
--- NOTE | 2021-05-21 05:27 | NUR ---
NOTIFIED MD OF CRITICAL PLT, WBC AND HGB. ORDERS RECEIVED, WILL TREAT ORDERED.
--- NOTE | 2021-05-21 06:47 | NUR ---
PATIENT IS ASLEEPLYING IN BED. AWAITING RESULTS FROM TYPE AND SCREEN, WILL PASS ON TO DAY SHIFT RN TO TRANFUSE 1UPRBCS PER MD ORDERS. NO EVIDENCE OF PAIN OR RESP DISTRESS. BED IN LOW POSITION, BED ALARM ON AND CALL LIGHT WITHIN REACH.
[2021-05-21 08:41] LABS: Percent Saturation 63.8 % (20.0-50.0)
--- NOTE | 2021-05-21 16:37 | NUR ---
At the request of pt's daughter Mary, I met with patient, his and son. 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 He stated he loves his family and can't wait to see them today. We did not get into greater detail on plan of care at this time, as pt is feeling extremely poor today. I then met with pt's and son, and it did not go well with pt's . I did not suggest they make any changes to pt's care, as he is awaiting CT's of head, chest and abdomen to restage pt's metastatic cancer. I did explain that at some point, the patient will not be a good candidate for treatment, and at that time, they can request hospice. I did reiterate the information that the pt's prognosis is terminal, even with treatment, as noted by Dr. Chen. However, the pt's states this is not the case, states she "believes in her , and she does not want to speak to me again. Pt's son Escobar however was interested in continuing our discussion, and I did explain to him what hospice provides, and that when there are no more treament options, hospice would be. He thanked me for the information and I again spoke briefly with pt's daughter, Mary. They will wait for the next update from Dr. Chen and make decisions at that time.
--- NOTE | 2021-05-21 18:41 | NUR ---
PT HAD DIARRHEA THIS AM. IMMODIUM ORDERED AND GIVEN, NONE SINCE. PT HAD EMMISIS THIS JAMEL. TRIED CRACKERS AND SODA. DID HELP MINIMALLY, ZOFRAN ORDERED AND GIVEN. WILL FOLLOW TO SEE IF RESOLVED. NO OTHER CONCERNS NOTED TODAY. BED IN LOW POSITION, CALL LITE IN REACH, CALLS APROP. SON AND IN TO SEE TODAY
[2021-05-22 06:06] LABS: Hematocrit 22.8 % (37.0-53.0); Hemoglobin 8.1 g/dL (13.5-17.5); Mean Corpuscular HGB 34.5 pg (26.0-34.0); Mean Corpuscular HGB Conc 35.5 g/dL (31.5-36.5); Mean Platelet Volume 11.8 fL (9.1-12.4); RDW Coefficient Variation 17.9 % (11.7-14.2); RDW Standard Deviation 63.7 fL (35.1-46.3); Red Blood Cell Count 2.35 M/mm3 (4.30-5.90); White Blood Cell Count 1.07 K/mm3 (4.00-11.30)
[2021-05-22 06:08] LABS: Mean Corpuscular Volume 97 fL (80-100)
[2021-05-22 06:14] LABS: Platelet Count 8 K/mm3 (150-400)
--- NOTE | 2021-05-22 06:21 | NUR ---
WAS NOTIFIED OF CRITICAL LAB RESULT FROM LAB, NOTIFIED TICKER WIRER MD, ORDERS RECEIVED TO TRANSFUSE 1U OF PLATELETS. WILL TREAT PATIENT ORDERED.
[2021-05-22 06:24] LABS: Anion Gap 7 mmol/L (6-16); Blood Urea Nitrogen 9 mg/dL (8-24); Bun/Creatinine Ratio 13.6 (12.0-20.0); CO2, Blood 28 mmol/L (21-32); Calcium, Blood 8.5 mg/dL (8.5-10.1); Chloride, Blood 103 mmol/L (98-108); Creatinine, Blood 0.66 mg/dL (0.60-1.20); Glomerular Filtration Rate >60 (60-); Glucose, Blood 114 mg/dL (70-99); Potassium, Blood 3.3 mmol/L (3.5-5.5); Sodium, Blood 138 mmol/L (136-145)
--- NOTE | 2021-05-22 09:11 | NUR ---
PT N/V. MED WITH ZOFRAN
--- NOTE | 2021-05-22 17:36 | NUR ---
pt has been pleasant today. no c/o pain, some n/v, but less than yest. ct and mri of head and abd to be completed today. no new concerns noted. bed in low position, call lite in reach, calls approp. in room today during visiting.
--- NOTE | 2021-05-23 05:46 | NUR ---
PATIENT IS ASLEEP LYING IN BED. PT HAS BEEN ON 3L NC ALL MIGHT, VS WNL, NO OTHER ACUTE CHANGES.NO EVIDENCE OF PAIN, RR EVEN AND UNLABORED. NO OTHER APPARENT NEEDS. BED IN LOW POSITION AND CALL LIGHT WITHIN REACH.
[2021-05-23 06:25] LABS: Anion Gap 4 mmol/L (6-16); Blood Urea Nitrogen 9 mg/dL (8-24); Bun/Creatinine Ratio 14.9 (12.0-20.0); CO2, Blood 32 mmol/L (21-32); Calcium, Blood 8.6 mg/dL (8.5-10.1); Chloride, Blood 101 mmol/L (98-108); Creatinine, Blood 0.61 mg/dL (0.60-1.20); Glomerular Filtration Rate >60 (60-); Glucose, Blood 121 mg/dL (70-99); Potassium, Blood 3.7 mmol/L (3.5-5.5); Sodium, Blood 137 mmol/L (136-145)
--- NOTE | 2021-05-23 10:14 | NUR ---
PER JOSE FERNANDEZ IN INFECTION CONTROL LAB ORDER TO CHECK FOR C-DIFF CAN BE DC'D SINCE PT WAS CHECKED A COUPLE OF DAYS AGO. ORDER DC'D PER HER REQUEST.
--- NOTE | 2021-05-23 15:11 | NUR ---
PT TITRATED OFF O2 TODAY. HIS SATS REMAINED BETWEEN 92-94% ON RA. PT SHOWED NO S/S OF SOB WITH TITRATION. PT GINGER WELL.
--- NOTE | 2021-05-23 16:45 | NUR ---
SHIFT SUMMARY: PT A/O VERY [place]. PT STAYED IN BED THE WHOLE DAY. FAMILY STATED HE WILL NEED TO RESTART HH SERVICES AT DISCHARGE. PT ATE AND DRANK WELL THROUGHOUT THE DAY. NO N/V OR C/O PAIN DURING SHIFT. PT COMMUNICATES WELL WITH [employer] BOARD USE. IN TO VISIT TODAY.
[2021-05-23] MEDS ORDERED: MEMA5TAB PO (22:26)
[2021-05-23] MEDS ORDERED: LEVO750 PO (22:28)
--- NOTE | 2021-05-24 04:04 | NUR ---
SUMMARY NO NEW ISSUES NOTED. PT HAS SLEPT THROUGHOUT SHIFT. PT VOIDING VIA URINAL. PT CURRENTLY SLEEPING AND IN NO DISTRESS. CALL LIGHT IN REACH.
[2021-05-24 05:27] LABS: BASOPHILS ABSOLUTE AUTO 0.04 K/mm3 (0.00-0.23); BASOPHILS PERCENT AUTO 1 % (0-2); Hematocrit 21.9 % (37.0-53.0); Hemoglobin 7.6 g/dL (13.5-17.5); Mean Corpuscular HGB 34.2 pg (26.0-34.0); Mean Corpuscular HGB Conc 34.7 g/dL (31.5-36.5); Mean Corpuscular Volume 99 fL (80-100); Mean Platelet Volume 11.2 fL (9.1-12.4); NRBC ABSOLUTE 0.02 K/mm3 (0.00-0.02); NRBC Auto 0.4 /100 WBC (0.0-0.2); RDW Coefficient Variation 17.1 % (11.7-14.2); RDW Standard Deviation 61.1 fL (35.1-46.3); Red Blood Cell Count 2.22 M/mm3 (4.30-5.90); White Blood Cell Count 5.66 K/mm3 (4.00-11.30)
[2021-05-24 05:30] LABS: EOSINOPHILS PERCENT AUTO 0 % (0-6); IMMATURE GRAN ABSOLUTE AUTO 0.98 K/mm3 (0.00-0.10); IMMATURE GRAN PERCENT AUTO 17 % (0-1); LYMPHOCYTES ABSOLUTE AUTO 0.52 K/mm3 (0.84-5.20); LYMPHOCYTES PERCENT AUTO 9 % (21-46); MONOCYTES ABSOLUTE AUTO 0.38 K/mm3 (0.16-1.47); MONOCYTES PERCENT AUTO 7 % (4-13); NEUTROPHILS ABSOLUTE AUTO 3.74 K/mm3 (1.96-9.15); NEUTROPHILS PERCENT AUTO 66 % (41-73); Platelet Count 24 K/mm3 (150-400)
[2021-05-24 05:43] LABS: Albumin, Blood 2.1 g/dL (3.4-5.0); Anion Gap 6 mmol/L (6-16); Blood Urea Nitrogen 12 mg/dL (8-24); CO2, Blood 31 mmol/L (21-32); Calcium, Blood 8.3 mg/dL (8.5-10.1); Chloride, Blood 97 mmol/L (98-108); Creatinine, Blood 0.71 mg/dL (0.60-1.20); Glomerular Filtration Rate >60 (60-); Glucose, Blood 141 mg/dL (70-99); Magnesium, Blood 1.5 mg/dL (1.6-2.4); Phosphorus, Blood 3.7 mg/dL (2.5-4.9); Potassium, Blood 3.8 mmol/L (3.5-5.5); Sodium, Blood 134 mmol/L (136-145)
[2021-05-24 05:47] LABS: BAND PERCENT MAN 7 % (0-8); BASOPHILS PERCENT MAN 0 % (0-2); BLASTS PERCENT MAN 2 % (0-0); EOSINOPHILS ABSOLUTE MAN 0.05 K/mm3 (0.00-0.68); EOSINOPHILS PERCENT MAN 1 % (0-6); LYMPHOCYTES ABSOLUTE MAN 0.67 K/mm3 (0.84-5.20); LYMPHOCYTES PERCENT MAN 12 % (21-46); METAMYELOCYTE ABSOLUTE MAN 0.22 K/mm3 (0.00-0.00); METAMYELOCYTE PERCENT MAN 4 % (0-0); MONOCYTES ABSOLUTE MAN 0.16 K/mm3 (0.16-1.47); MONOCYTES PERCENT MAN 3 % (4-13); MYELOCYTE ABSOLUTE MAN 0.28 K/mm3 (0.00-0.00); MYELOCYTE PERCENT MAN 5 % (0-0); NEUTROPHILS ABSOLUTE MAN 4.07 K/mm3 (1.96-9.15); PROMYELOCYTE ABSOLUTE MAN 0.05 K/mm3 (0.00-0.00); PROMYELOCYTE PERCENT MAN 1 % (0-0); SEG NEUTROPHILS PERCENT MAN 65 % (41-73); TOTAL CELLS COUNTED 100
--- NOTE | 2021-05-24 06:29 | NUR ---
0630 PT PLTS THIS AM 24 ATTEMPTED TO CALL PROVIDER. WILL PASS ON RESULTS TO DAY RN.
--- NOTE | 2021-05-24 07:45 | NUR ---
DR. BRINK NOTIFIED VIA TC OF CRITICAL LAB PLATELET LEVEL OF 24. NO NEW ORDERS.
--- NOTE | 2021-05-24 10:44 | NUR ---
DR. PEACOCK OFFICE CALLED TO SEE IF DR. PEACOCK WAS OKAY FOR PT TO DISCHARGE TODAY AND TO GET FOLLOW-UP APPOINTMENT. PER KATARZYNA, DR. PEACOCK STATED IT WAS OKAY FOR PT TO DISCHARGE TODAY. THEY WILL CALL PT TO SET UP A FOLLOW-UP APPOINTMENT. DR. BRINK NOTIFIED.
[2021-05-24] MEDS ORDERED: VISBIOME 112.51 EACH PO (11:08)
[2021-05-24] MEDS ORDERED: DOXY100 PO (11:09)
--- NOTE | 2021-05-24 15:33 | NUR ---
DISCHARGE NOTE: PT AND EDUCATED ON MEDICATIONS, DC INSTRUCTIONS AND IV SITE POST REMOVAL CARE AND SIGNS OF INFECTION. PT/SPOPUSE VU. PT BELONGINGS PACKED UP AND SENT WITH PT. ASSISTED PT WITH GETTING PERSONAL CLOTHING ON AND TX TO WC. PT ESCORTED TO POV BY [facility].
== END 2021-05-24 15:30 | disposition home health service (06) | DRG 808 ==
LOC: ER 16:00 → PCU 21:57 → MEDS 21:57 → PCU 23:35 → MEDS 05-20 14:14 → ENPENDDIS 05-24 11:14 → MEDS 05-24 15:30
PROVIDERS: Internal Medicine; Physician Assistant; Student in an Organized Health Care Education/Training Program; ADMIT Family Medicine
DX: D70.1 Agranulocytosis secondary to cancer chemotherapy (principal); R57.1 Hypovolemic shock; C34.90 Malignant neoplasm of unspecified part of unspecified bronchus or lung; C79.31 Secondary malignant neoplasm of brain; E87.1 Hypo-osmolality and hyponatremia; E87.2 Acidosis; Z20.822 Contact with and (suspected) exposure to COVID-19; E87.6 Hypokalemia; I48.0 Paroxysmal atrial fibrillation; E78.5 Hyperlipidemia, unspecified; E03.9 Hypothyroidism, unspecified; J44.9 Chronic obstructive pulmonary disease, unspecified; K21.9 Gastro-esophageal reflux disease without esophagitis; D61.810 Antineoplastic chemotherapy induced pancytopenia; D69.6 Thrombocytopenia, unspecified; Z92.21 Personal history of antineoplastic chemotherapy; Z88.0 Allergy status to penicillin; Z88.8 Allergy status to other drugs, medicaments and biological substances
CPT/HCPCS: 36415; 36430; 70450; 70551; 71046; 71260; 74177; 80048; 80053; 80069; 81001; 82728; 83540; 83550; 83605; 83735; 84100; 84550; 85025; 85027; 85610; 86850; 86900; 86901; 86923; 87015; 87040; 87045; 87046; 87086; 87205; 87493; 87899; 93005; 93010; 94760; 94761; 96365; 96366; 96368; 99285-25; A9270; C1751; J0692; J2060; J2185; J2405; J3370; J3475; J3480; J7030; J7050; J7120; P9016; P9035; Q9967; U0004

== ENCOUNTER → 2021-07-15 | Outpatient (CLI) | payer MEDICARE ==
[~2021-07-15] MED LIST changes: +CEPH500 PO; +DOXY100 PO; +LEVO750 PO; +MEMA5TAB PO; +MUPIROCIN1 G1 TOP; +VISBIOME 112.51 EACH PO
== END | disposition home or self-care (01) ==
LOC: LAB 14:33 → LAB SHORT 14:33
DX: L08.0 Pyoderma (principal)
CPT/HCPCS: 87070; 87205

== ENCOUNTER 2021-07-28 09:30 | Emergency (ER) | payer MEDICARE ==
[~2021-07-28] VITALS: Ht 182.9 cm; Wt 78.0 kg
[2021-07-28 11:04] LABS: BASOPHILS ABSOLUTE AUTO 0.03 K/mm3 (0.00-0.23); BASOPHILS PERCENT AUTO 1 % (0-2); EOSINOPHILS PERCENT AUTO 0 % (0-6); Hematocrit 36.2 % (37.0-53.0); Hemoglobin 12.4 g/dL (13.5-17.5); IMMATURE GRAN ABSOLUTE AUTO 0.25 K/mm3 (0.00-0.10); IMMATURE GRAN PERCENT AUTO 4 % (0-1); LYMPHOCYTES ABSOLUTE AUTO 0.64 K/mm3 (0.84-5.20); LYMPHOCYTES PERCENT AUTO 11 % (21-46); MONOCYTES ABSOLUTE AUTO 0.38 K/mm3 (0.16-1.47); MONOCYTES PERCENT AUTO 6 % (4-13); Mean Corpuscular HGB 33.2 pg (26.0-34.0); Mean Corpuscular HGB Conc 34.3 g/dL (31.5-36.5); Mean Corpuscular Volume 97 fL (80-100); Mean Platelet Volume 9.5 fL (9.1-12.4); NEUTROPHILS ABSOLUTE AUTO 4.63 K/mm3 (1.96-9.15); NEUTROPHILS PERCENT AUTO 78 % (41-73); NRBC ABSOLUTE 0.08 K/mm3 (0.00-0.02); NRBC Auto 1.3 /100 WBC (0.0-0.2); Platelet Count 195 K/mm3 (150-400); RDW Coefficient Variation 16.4 % (11.7-14.2); RDW Standard Deviation 58.4 fL (35.1-46.3); Red Blood Cell Count 3.74 M/mm3 (4.30-5.90); White Blood Cell Count 5.93 K/mm3 (4.00-11.30)
[2021-07-28 11:35] LABS: Alanine Aminotransfer (ALT/SGP 89 U/L (12-78); Albumin/Globulin Ratio 0.8 (0.8-1.8); Alk Phos 82 U/L (50-136); Anion Gap 15 mmol/L (6-16); Aspartate Aminotrans (AST/SGOT 23 U/L (12-37); Bilirubin, Total 0.7 mg/dL (0.1-1.0); Blood Urea Nitrogen 28 mg/dL (8-24); Bun/Creatinine Ratio 45.5 (12.0-20.0); CO2, Blood 18 mmol/L (21-32); Calcium, Blood 8.5 mg/dL (8.5-10.1); Chloride, Blood 106 mmol/L (98-108); Creatinine, Blood 0.62 mg/dL (0.60-1.20); Globulin, Blood 3.8 g/dL (2.2-4.0); Glomerular Filtration Rate >60 (60-); Glucose, Blood 257 mg/dL (70-99); Potassium, Blood 3.8 mmol/L (3.5-5.5); Sodium, Blood 139 mmol/L (136-145); Total Protein, Blood 6.8 g/dL (6.4-8.2)
[2021-07-28 15:17] LABS: Influenza A, PCR NEGATIVE (NEGATIVE); Influenza B, PCR NEGATIVE (NEGATIVE); Resp Syncytial Virus, PCR NEGATIVE (NEGATIVE); SARS-Cov-2 (COVID-19) PCR, MMC NEGATIVE (NEGATIVE)
== END 2021-07-28 14:30 | disposition left against medical advice (07) ==
LOC: ER 09:30
PROVIDERS: Physician Assistant; Student in an Organized Health Care Education/Training Program
DX: R05.9 Cough, unspecified (principal); Z20.822 Contact with and (suspected) exposure to COVID-19; I10 Essential (primary) hypertension; I48.91 Unspecified atrial fibrillation; Z88.0 Allergy status to penicillin; Z79.899 Other long term (current) drug therapy
CPT/HCPCS: 0241U; 36415; 71046; 80053; 85025; 93005; 93010; 99284-25

== ENCOUNTER 2021-08-07 15:23 | Observation (INO) | payer MEDICARE ==
[~2021-08-07] VITALS: Ht 182.9 cm; Wt 78.0 kg
[2021-08-07 16:04] LABS: Hematocrit 34.1 % (37.0-53.0); Hemoglobin 11.4 g/dL (13.5-17.5); Mean Corpuscular HGB Conc 33.4 g/dL (31.5-36.5); Mean Corpuscular Volume 99 fL (80-100); Mean Platelet Volume 10.1 fL (9.1-12.4); NRBC ABSOLUTE 0.09 K/mm3 (0.00-0.02); NRBC Auto 1.2 /100 WBC (0.0-0.2); Platelet Count 233 K/mm3 (150-400); RDW Coefficient Variation 16.8 % (11.7-14.2); RDW Standard Deviation 60.8 fL (35.1-46.3); Red Blood Cell Count 3.45 M/mm3 (4.30-5.90); White Blood Cell Count 7.57 K/mm3 (4.00-11.30)
[2021-08-07 16:05] LABS: Source, Urine Voided
[2021-08-07 16:07] LABS: Appearance, Urine Cloudy (Clear); Blood, Urine 1+ (Neg); Color, Urine Amber (P-Yellow); Glucose Qualitative, Urine 2+ (Neg); Ketones, Urine Neg (Neg); Leukocyte Esterase, Urine 1+ (Neg); Nitrite, Urine Neg (Neg); Protein, Urine 2+ (Neg); Specific Gravity, Urine 1.025 (1.003-1.022); Urobilinogen, Urine 1+ (Normal)
[2021-08-07 16:24] LABS: Bilirubin, Urine 1+ (Neg); Red Blood Cells, Urine 0-2 /hpf (0-2)
[2021-08-07 16:25] LABS: Bacteria Mod /hpf; Hyaline Casts TNTC /lpf (0-2); Squamous Epithelial Cells Few /hpf (Few); WBC Cast Rare /lpf (0)
[2021-08-07 16:30] LABS: Alanine Aminotransfer (ALT/SGP 65 U/L (12-78); Albumin, Blood 2.2 g/dL (3.4-5.0); Albumin/Globulin Ratio 0.4 (0.8-1.8); Alk Phos 107 U/L (50-136); Anion Gap 14 mmol/L (6-16); Aspartate Aminotrans (AST/SGOT 37 U/L (12-37); Bilirubin, Total 0.9 mg/dL (0.1-1.0); Blood Urea Nitrogen 34 mg/dL (8-24); Bun/Creatinine Ratio 37.9 (12.0-20.0); CO2, Blood 18 mmol/L (21-32); Chloride, Blood 101 mmol/L (98-108); Free Thyroxine 1.93 ng/dL (0.70-1.60); Glomerular Filtration Rate >60 (60-); Glucose, Blood 268 mg/dL (70-99); Potassium, Blood 4.3 mmol/L (3.5-5.5); Sodium, Blood 133 mmol/L (136-145); Total Protein, Blood 7.2 g/dL (6.4-8.2)
[2021-08-07 16:44] LABS: BAND PERCENT MAN 2 % (0-8); BASOPHILS PERCENT MAN 0 % (0-2); EOSINOPHILS PERCENT MAN 0 % (0-6); LYMPHOCYTES % ATYPICAL MANUAL 1 % (0-0); LYMPHOCYTES ABSOLUTE MAN 0.37 K/mm3 (0.84-5.20); LYMPHOCYTES PERCENT MAN 4 % (21-46); METAMYELOCYTE ABSOLUTE MAN 0.07 K/mm3 (0.00-0.00); METAMYELOCYTE PERCENT MAN 1 % (0-0); MONOCYTES ABSOLUTE MAN 0.22 K/mm3 (0.16-1.47); MONOCYTES PERCENT MAN 3 % (4-13); MYELOCYTE ABSOLUTE MAN 0.15 K/mm3 (0.00-0.00); MYELOCYTE PERCENT MAN 2 % (0-0); NEUTROPHILS ABSOLUTE MAN 6.66 K/mm3 (1.96-9.15); PROMYELOCYTE ABSOLUTE MAN 0.07 K/mm3 (0.00-0.00); PROMYELOCYTE PERCENT MAN 1 % (0-0); SEG NEUTROPHILS PERCENT MAN 86 % (41-73); TOTAL CELLS COUNTED 100
[2021-08-07] MEDS ORDERED: SIMV10 PO (21:13)
[2021-08-07] MEDS ORDERED: AMLO10 PO (21:14)
[2021-08-07] MEDS ORDERED: MUPIROCIN22 G6 TOP (21:15)
--- NOTE | 2021-08-08 05:59 | NUR ---
SHIFT SUMMARY PT ARRIVED TO MEDICAL FLOOR AT 0 ON 08/07/21, ACCOMPANIED BY SON, ITA, VIVIAN AND DAUGHTER. PT WAS SLID FROM ER [facility] TO MEDICAL BED WITH 2 STAFF MEMBERS AND A SLIDE SHEET. COMFORT CARE DUE TO BRAIN CANCER METS. PT ON 2LPM NC. NOT ALERT, WILL OCCASSIONAL GROAN OR GRIMACE, SEE EMAR FOR PRNS GIVEN. IN ATTENDS. SKIN ISSUES: BED SORE ON SACRAL AREA, AND RIGHT HIP. BILAT WOUNDS TO ANKLES THAT ARE COVERED WITH DRESSINGS APPLIED BY [facility] 08/06 PER 'S REPORT. DRESSINGS ARE C/D/I. PT'S SKIN IS DRY, FRAGILE WITH SCATTERED ECCHYMOSIS. IS VERY DISTRESSED WHEN DISCUSSING HOSPICE OR FUTURE CARE DECISIONS. REQUESTS THAT ALL CARE PLANNING PHONE CALLS BE PLACED TO SON ITA. PT IS BEING SEEN BY [facility] FOR WOUND CARE WITH APPTS EVERY FEW WEEKS AT [facility], PER REPORT.B IV ACCESS 22G LEFT WRIST.
--- NOTE | 2021-08-08 16:47 | NUR ---
SHIFT SUMMARY PT ON COMFORT CARE, MEDICATED WITH ROXANOL PRIOR TO START OF SHIFT. PT RESTLESS AND CALLING OUT DURING SHIFT REPORT. PT MEDICATED AGAIN WITH IV DILAUDID 1MG, WHICH APPEARED TO BE EFFECTIVE THAT TIME. PT DID WELL FOR A WHILE AND THEN BEGAN TO YELL OUT AGAIN. PT MEDICATED FOR PAIN PER EMAR. PT'S IN THIS AM, SITTING AT BS. DR EARLY IN TO SEE PT AND . PT WAS TO HAVE D/C HOME ON HOSPICE, BUT UNABLE TO D/T SNOW. PT WILL REMAIN HERE ON COMFORT CARE AND REASSESS TOMORROW. PT'S SON LATER IN WELL. PT CLEANED AND CHANGED FOR INCONTINENCE. RESTING QUIETLY AT THIS TIME. FAMILY REMAINS AT BS. DENIES FURTHER NEEDS AT THIS TIME.
--- NOTE | 2021-08-08 20:15 | NUR ---
PHONE CALL TO PHYSICIAN PLACED PHONE CALL TO DR. GARZA TO NOTIFY OF TIME OF , 1924 TODAY.
== END 2021-08-08 19:25 | disposition hospice, home (50) ==
LOC: ER 15:23 → ERHOLD 15:30 → MEDS 21:20
PROVIDERS: Emergency Medicine; ADMIT Internal Medicine
DX: E86.0 Dehydration (principal); E87.1 Hypo-osmolality and hyponatremia; G92.8 Other toxic encephalopathy; E05.80 Other thyrotoxicosis without thyrotoxic crisis or storm; T46.2X5A Adverse effect of other antidysrhythmic drugs, initial encounter; C34.90 Malignant neoplasm of unspecified part of unspecified bronchus or lung; C79.31 Secondary malignant neoplasm of brain; I10 Essential (primary) hypertension; I48.20 Chronic atrial fibrillation, unspecified; E03.9 Hypothyroidism, unspecified; Z66 Do not resuscitate; Z95.0 Presence of cardiac pacemaker; Z79.82 Long term (current) use of aspirin; Z88.0 Allergy status to penicillin; Z88.8 Allergy status to other drugs, medicaments and biological substances
CPT/HCPCS: 36415; 70450; 71045; 80053; 81001; 83735; 83880; 84145; 84439; 84443; 85025; 87086; 93005; 93010; 96365; 96375; 96376; 99285-25; A9270; G0378; J0456; J0696; J1170; J7030; J7050